=== PATIENT | female | born 1935 | race Caucasian/White ===

== ENCOUNTER 2019-08-12 08:00 | Outpatient (CLI) | payer OTHER | END 2019-08-12 15:06 | disposition home or self-care (01) | LOC: LAB 08:00 → RAD 08:00 → LAB 15:06 | DX: I70.0 Atherosclerosis of aorta (principal); Z00.01 Encounter for general adult medical examination with abnormal findings; N39.0 Urinary tract infection, site not specified; E11.9 Type 2 diabetes mellitus without complications; E03.8 Other specified hypothyroidism; E78.2 Mixed hyperlipidemia; Z12.12 Encounter for screening for malignant neoplasm of rectum ==

== ENCOUNTER 2019-08-14 09:52 | Outpatient (CLI) | payer OTHER | END 2019-08-14 09:57 | disposition home or self-care (01) | LOC: LAB 09:52 | DX: E78.2 Mixed hyperlipidemia (principal); Z12.12 Encounter for screening for malignant neoplasm of rectum; N39.0 Urinary tract infection, site not specified; E11.9 Type 2 diabetes mellitus without complications; E03.8 Other specified hypothyroidism ==

== ENCOUNTER 2019-09-11 11:26 | Outpatient (CLI) | payer OTHER | END 2019-09-11 12:00 | disposition home or self-care (01) | LOC: NUCLEAR 11:26 | DX: M81.0 Age-related osteoporosis without current pathological fracture (principal) ==

== ENCOUNTER 2021-05-29 08:11 | Emergency (ER) | payer OTHER ==
[~2021-05-29] VITALS: Ht 162.6 cm; Wt 44.0 kg
[2021-05-29] MEDS ORDERED: ORPHENADRINE C100 MG PO (14:27)
[2021-05-29] MEDS ORDERED: DICLOFENAC POTA50 MG PO (14:27)
== END 2021-05-29 14:47 | disposition home or self-care (01) ==
LOC: ER 08:11
DX: S40.021A Contusion of right upper arm, initial encounter (principal); S50.11XA Contusion of right forearm, initial encounter; M75.81 Other shoulder lesions, right shoulder; W18.09XA Striking against other object with subsequent fall, initial encounter; Y93.89 Activity, other specified; Y92.028 Other place in mobile home as the place of occurrence of the external cause; Y99.8 Other external cause status

== ENCOUNTER 2022-05-17 08:01 | Emergency (ER) | payer OTHER ==
[~2022-05-17] VITALS: Ht 147.3 cm; Wt 40.8 kg
[~2022-05-17 08:01] MED LIST: DICLOFENAC POTA50 MG PO; ORPHENADRINE C100 MG PO
[2022-05-17] MEDS ORDERED: VASOTEC5 MG (08:33)
[2022-05-17] MEDS ORDERED: ARICEPT5 MG (08:33)
== END 2022-05-20 08:25 ==
LOC: ER 08:01
DX: T50.901A Poisoning by unspecified drugs, medicaments and biological substances, accidental (unintentional), initial encounter (principal); Y92.018 Other place in single-family (private) house as the place of occurrence of the external cause; I10 Essential (primary) hypertension; G30.9 Alzheimer's disease, unspecified; F02.80 Dementia in other diseases classified elsewhere, unspecified severity, without behavioral disturbance, psychotic disturbance, mood disturbance, and anxiety; Z20.822 Contact with and (suspected) exposure to COVID-19